=== PATIENT | female | born 1995 | race Caucasian/White ===

== ENCOUNTER → 2023-08-08 | Outpatient (CLI) | payer OTHER ==
[~2023-08-08] MED LIST: BENADRYL50 MG PO; EPI EZ PEN1 MG/ML IM; PREDNICOT20 MG PO; ZANTAC150 MG PO
== END | disposition home or self-care (01) ==
LOC: ORTHO 00:35
PROVIDERS: ATTEND Orthopaedic Surgery
DX: M25.562 Pain in left knee (principal)